=== PATIENT | female | born 1975 | race Caucasian/White ===

== ENCOUNTER 2018-02-06 21:22 | Emergency (ER) | payer BC ==
[2018-02-06] MEDS ORDERED: HYOSCYAMINE SULFATE ODT 0.125 MG TAB.SUBL SL ONE (22:44)
[2018-02-06] MEDS ORDERED: 0.9 % SODIUM CHLORIDE 1000ML 1,000 ML IV SCH (22:45)
--- NOTE | 2018-02-06 22:48 | Emergency Department Record ---
History of Present Illness - General Chief complaint: GI Bleed Stated complaint: BLACK STOOL Time Seen by Provider: 02/06/18 22:37 Source: Patient Mode of Arrival: Ambulatory Limitations: No limitations - History of Present Illness Initial comments: 42 yo female presents to ED for evaluation of abdominal pain/cramping x 1 week and "black stools" that began tonight. Patient reports a history of partial colectomy 3 years ago for colon cancer, did not receive chemo/radiation at that time and has been in remission since that time. Patient reports taking Pepto- bismol as well for the past 2 days. Patient denies fevers, chills, or recent illness. MD complaint: Other (black stools) Onset/Timin -: Days(s) Radiation: None Consistency: Intermittent Improves with: None Worsens with: None Associated Symptoms: Nausea - Related Data Previous Rx's Medication Instructions Recorded Hyoscyamine Sulfate [Levsin-Sl] 0.25 mg SL Q8H PRN #20 tab.subl 02/07/18 Allergies Allergy/AdvReac Type Severity Reaction Status Date / Time meperidine HCl [From Demerol] Allergy NAUSEA Verified 09/16/15 10:46 nitrofurantoin AdvReac NEUROTOXICI Verified 09/16/15 10:46 [From Macrobid] TY nitrofurantoin AdvReac NEUROTOXICI Verified 09/16/15 10:46 macrocrystalline TY [From Macrobid] Travel Screening - Travel/Exposure Within Last 30 Days Have you traveled within the last 30 days?: No - Travel/Exposure Within Last Year Have you traveled outside the [place] in the last year?: No - Additonal Travel Details Have you been exposed to anyone with a communicable illness?: No - Travel Symptoms Symptom Screening: None Review of Systems Constitutional: Denies: Chills, Fever, Malaise, Night sweats Eyes: Denies: Eye discharge, Eye pain ENT: Denies: Congestion, Ear pain, Epistaxis Respiratory: Denies: Cough, Dyspnea Cardiovascular: Denies: Chest pain, Dyspnea on exertion Endocrine: Denies: Fatigue, Heat or cold intolerance Gastrointestinal: Reports: Abdominal pain, Melena. Denies: Nausea, Vomiting Genitourinary: Denies: Incontinence, Retention Musculoskeletal: Denies: Arthralgia, Back pain, Gout, Joint swelling Skin: Denies: Bruising, Change in color Neurological: Denies: Abnormal gait, Confusion, Headache, Seizure Psychiatric: Denies: Anxiety Hematological/Lymphatic: Denies: Anemia, Blood Clots Past Medical History - SOCIAL HISTORY Smoking Status: Never smoker Alcohol Use: None Drug Use: None - RESPIRATORY Hx Respiratory Disorders: No - CARDIOVASCULAR Hx Cardio Disorders: Yes Hx Hypertension: Yes - NEURO Hx Neuro Disorders: No - GI Hx GI Disorders: Yes Hx Abdominal Pain: Yes - Hx Genitourinary Disorders: No - ENDOCRINE Hx Endocrine Disorders: No - MUSCULOSKELETAL Hx Musculoskeletal Disorders: No - PSYCH Hx Psych Problems: No - HEMATOLOGY/ONCOLOGY Hx Hematology/Oncology Disorders: Yes Hx Cancer: Yes (colon) Family Medical History Any Significant Family History?: No Physical Exam - General General Appearance: Alert, Oriented x3, Cooperative, Mild distress Limitations: No limitations - Head Head exam: Atraumatic, Normocephalic, Normal inspection Head exam detail: negative: Abrasion, Contusion, Lock's sign, General tenderness, Hematoma, Laceration - Eye Eye exam: Normal appearance. negative: Conjunctival injection, Periorbital swelling, Periorbital tenderness, Scleral icterus - ENT Ear exam: negative: Auricular hematoma, Auricular trauma Nasal Exam: negative: Active bleeding, Discharge, Dried blood, Foreign body Mouth exam: negative: Drooling, Laceration, Muffled voice, Tongue elevation - Neck Neck exam: Normal inspection. negative: Meningismus, Tenderness - Respiratory Respiratory exam: Normal lung sounds bilaterally. negative: Rales, Respiratory distress, Rhonchi, Stridor - Cardiovascular Cardiovascular Exam: Regular rate, Normal rhythm, Normal heart sounds - GI/Abdominal GI/Abdominal exam: Soft, Tenderness (Mild-moderate diffuse TTP on examination, no rebound or guarding present.). negative: Rebound, Rigid - Rectal Rectal exam: Heme (-) stool, Normal inspection. negative: Black stool, Bloody stool - exam: Deferred - Extremities Extremities exam: Normal inspection. negative: Calf tenderness, Pedal edema, Tenderness - Back Back exam: Denies: CVA tenderness (R), CVA tenderness (L) - Neurological Neurological exam: Alert, Normal gait, Oriented X3 - Psychiatric Psychiatric exam: Normal affect, Normal mood - Skin Skin exam: Normal color. negative: Abrasion Type of lesion: negative: abrasion Course Vital Signs 02/06/18 22:16 Temperature 98.4 F Pulse Rate [ 74 Pulse Ox Probe] Respiratory 18 Rate Blood Pressure 153/90 [Left Arm] Pulse Ox 99 - Reevaluation(s) Reevaluation #1: 02/06/18 23:18 Labs reviewed and are grossly unremarkable for an acute process. Reevaluation #2: 02/07/18 01:58 CT Abdomen and Pelvis: No acute process Patient was updated on all results, reports improvement in her symptoms and appears stable for discharge at this time. Medical Decision Making - Lab Data Result diagrams: 02/06/18 22:45 02/06/18 22:45 Disposition Disposition: Discharge Clinical Impression: Abdominal pain Qualifiers: Abdominal location: generalized Qualified Code(s): R10.84 - Generalized abdominal pain Disposition: Home, Self-Care Condition: (2) Stable Instructions: Abdominal Pain (ED) Additional Instructions: Return to ED if your symptoms worsen or if you have any concerns. Follow-up with your family doctor in 3-5 days as directed. Levsin as directed. Prescriptions: Hyoscyamine Sulfate [Levsin-Sl] 0.25 mg SL Q8H PRN #20 tab.subl PRN Reason: Abdominal Pain Forms: Patient Portal Access Time of Disposition: 00:59 Quality - Quality Measures Quality Measures: N/A - Blood Pressure Screening Does Patient Have Any of the Following: No Blood Pressure Classification: Pre-Hypertensive BP Reading Systolic Measurement: 139 Diastolic Measurement: 80 Screening for High Blood Pressure: < Pre-Hypertensive BP, F/U Documented > [ G8950] Pre-Hypertensive Follow-up Interventions: Referral to alternative/primary care provider.
[2018-02-06 22:54] LABS: BASO % 0.5 % (0-6); EOS % 2.4 % (0-6); GRAN % 57.8 % (47-80); HEMATOCRIT 36.3 % (35.0-47.0); HEMOGLOBIN 12.3 gm/dl (11.6-16.0); LYMPH % 28.4 % (16-45); MEAN CELL VOLUME 82.5 fl (81-97); MEAN CORPUSCULAR HGB CONC 33.9 g/dl (32-36); MEAN PLATELET VOLUME 8.5 fl (7.4-10.4); MONO % 10.9 % (0-9); PLATELET COUNT 269 K/uL (130-400); RED CELL DISTRIBUTION WIDTH 13.4 % (11.5-14.5); WHITE BLOOD COUNT W/O DIFF 5.8 K/uL (4.2-12.2)
[2018-02-06 23:03] LABS: BLOOD UREA NITROGEN 13 mg/dL (6-20); CREATININE 0.6 mg/dL (0.5-0.9); EST GLOMERULAR FILTRATION RATE > 60 mL/min
[2018-02-06 23:04] LABS: TOTAL PROTEIN 6.7 g/dL (6.6-8.7)
[2018-02-06 23:06] LABS: GLUCOSE,RANDOM 118 mg/dL (74-109)
[2018-02-06 23:08] LABS: ALB/GLOB RATIO 1.8 (1.1-1.8); ALBUMIN 4.3 g/dL (4.0-5.0); ALT/SGPT 26 U/L (<33); AST/SGOT 27 U/L (10.0-35.0)
[2018-02-06 23:09] LABS: ALKALINE PHOSPHATASE 62 U/L (35-104); LIPASE 64 U/L (13-60)
[2018-02-06 23:46] LABS: URINE APPEARANCE CLEAR; URINE BILIRUBIN NEGATIVE (NEGATIVE); URINE BLOOD NEGATIVE (NEGATIVE); URINE COLOR YELLOW; URINE GLUCOSE (UA) NEGATIVE (NEGATIVE); URINE KETONE NEGATIVE (NEGATIVE); URINE LEUKOCYTE ESTERASE NEGATIVE (NEGATIVE); URINE NITRITE NEGATIVE (NEGATIVE); URINE PROTEIN NEGATIVE (NEGATIVE); URINE UROBILINOGEN 0.2 E.U./dL (0.20 - 1.00)
[2018-02-06 23:48] LABS: HCG,QUALITATIVE URINE NEGATIVE (NEGATIVE)
--- NOTE | 2018-02-07 19:08 | CT SCAN REPORT ---
EXAM: CT SCAN ABDOMEN/PELVIS W CONTRAST HISTORY: LOWER ABDOMINAL PAIN. TECHNIQUE: Sequential axial images were obtained from the diaphragms through the ischiorectal fossa after the intravenous and oral administration of 100 mL of Omnipaque-300 contrast material. FINDINGS: The visualized lung bases appear normal. The liver appears normal. The gallbladder has been surgically removed. The pancreas appears normal. There is splenomegaly. The spleen measures 13.8 cm AP diameter. The adrenal glands appear normal. There is focal areas of cortical scarring in both kidneys. There is a ventral wall hernia containing transverse colon. No evidence of obstruction. The small bowel appears normal. No pelvic mass or obstruction is appreciated. The uterus and adnexal structures appear normal. The urinary bladder appears normal. There is a sclerotic focus in the right sacroiliac wing. No additional foci are appreciated. IMPRESSION: 1. VENTRAL WALL HERNIA CONTAINING TRANSVERSE COLON. NO EVIDENCE OF OBSTRUCTION. 2. FOCAL AREAS OF SCARRING IN BOTH KIDNEYS. 3. SCLEROTIC FOCUS IN THE RIGHT ILIAC WING MEASURING APPROXIMATELY 16 MM. 4. MILD SPLENOMEGALY. THE SPLEEN MEASURES 13.6 CM AP DIMENSION. JOB NUMBER: [id number] [facility]
== END 2018-02-07 02:24 | disposition home or self-care (01) ==
LOC: ER 21:22
DX: R10.84 Generalized abdominal pain (principal); R11.0 Nausea; I10 Essential (primary) hypertension; Z85.038 Personal history of other malignant neoplasm of large intestine
CPT/HCPCS: 99284 ×2; 83690; 85025; 80053; 81003; 81025; 74177; Q9967; J1980; J7030

== ENCOUNTER 2019-03-19 17:23 | Emergency (ER) | payer BC ==
[2019-03-19 18:04] LABS: BASO % 0.2 % (0-6); EOS % 3.4 % (0-6); GRAN % 61.9 % (47-80); HEMATOCRIT 36.4 % (35.0-47.0); HEMOGLOBIN 12.1 gm/dl (11.6-16.0); LYMPH % 24.8 % (16-45); MEAN CELL VOLUME 82.5 fl (81-97); MEAN CORPUSCULAR HEMOGLOBIN 27.4 pg (27-33); MEAN CORPUSCULAR HGB CONC 33.2 g/dl (32-36); MEAN PLATELET VOLUME 8.8 fl (7.4-10.4); MONO % 9.7 % (0-9); PLATELET COUNT 258 K/uL (130-400); RED BLOOD COUNT 4.41 M/uL (3.80-5.40); RED CELL DISTRIBUTION WIDTH 13.9 % (11.5-14.5); WHITE BLOOD COUNT W/O DIFF 5.2 K/uL (4.2-12.2)
[2019-03-19 18:05] LABS: URINE APPEARANCE CLEAR; URINE BILIRUBIN NEGATIVE (NEGATIVE); URINE BLOOD NEGATIVE (NEGATIVE); URINE COLOR YELLOW; URINE GLUCOSE (UA) NEGATIVE (NEGATIVE); URINE KETONE NEGATIVE (NEGATIVE); URINE LEUKOCYTE ESTERASE NEGATIVE (NEGATIVE); URINE NITRITE NEGATIVE (NEGATIVE); URINE PROTEIN NEGATIVE (NEGATIVE); URINE UROBILINOGEN 0.2 E.U./dL (0.20 - 1.00)
[2019-03-19] MEDS ORDERED: KETOROLAC 30 MG/ML VIAL IVP ONE (18:07)
--- NOTE | 2019-03-19 18:12 | Emergency Department Record ---
History of Present Illness - General Chief complaint: Female Urogenital Problem Stated complaint: PELVIC PAIN Time Seen by Provider: 03/19/19 17:47 Source: Patient Mode of Arrival: Ambulatory Limitations: No limitations - History of Present Illness Initial comments: 43 yo female presents to ED for evaluation of right lower quadrant/inguinal pain that has been progressively worsening for the past several weeks. Patient reports pain with sitting up, standing. Patient denies fevers, chills, urinary symptoms, vaginal discharge, or change in stools. Patient denies previous abdominal surgery, denies health problems at her baseline. MD Complaint: Other Onset/Timin -: Week(s) Location: Other (Right inguinal region) Radiation: Non-radiating Severity: Moderate Quality: Aching Improves with: None Worsens with: None Patient : No LMP Date: 03/12/19 Gestational Age (wks) based on LMP: 1 Associated Symptoms: Denies other symptoms - Related Data Home Medications Medication Instructions Recorded Confirmed Last Taken No Home Med [NO HOME MEDS] 03/19/19 03/19/19 Unknown Allergies Allergy/AdvReac Type Severity Reaction Status Date / Time meperidine HCl [From Demerol] AdvReac NAUSEA Verified 03/19/19 17:44 nitrofurantoin AdvReac NEUROTOXICI Verified 03/19/19 17:44 [From Macrobid] TY nitrofurantoin AdvReac NEUROTOXICI Verified 03/19/19 17:44 macrocrystalline TY [From Macrobid] Travel Screening - Travel/Exposure Within Last 30 Days Have you traveled within the last 30 days?: No Review of Systems Constitutional: Denies: Chills, Fever Eyes: Denies: Eye discharge, Eye pain ENT: Denies: Congestion, Ear pain, Epistaxis Respiratory: Denies: Cough, Dyspnea Cardiovascular: Denies: Chest pain, Dyspnea on exertion Endocrine: Denies: Fatigue, Heat or cold intolerance Gastrointestinal: Reports: Abdominal pain. Denies: Constipation, Nausea, Vomiting Genitourinary: Denies: Incontinence, Retention Musculoskeletal: Denies: Arthralgia, Back pain Skin: Denies: Bruising, Change in color Neurological: Denies: Abnormal gait, Confusion, Headache, Numbness, Vertigo Psychiatric: Denies: Anxiety Hematological/Lymphatic: Denies: Anemia, Blood Clots Past Medical History - SOCIAL HISTORY Smoking Status: Never smoker Alcohol Use: None Drug Use: None - RESPIRATORY Hx Respiratory Disorders: No - CARDIOVASCULAR Hx Cardio Disorders: Yes Hx Hypertension: Yes - NEURO Hx Neuro Disorders: No - GI Hx GI Disorders: Yes Hx Abdominal Pain: Yes - Hx Genitourinary Disorders: No - ENDOCRINE Hx Endocrine Disorders: No - MUSCULOSKELETAL Hx Musculoskeletal Disorders: No - PSYCH Hx Psych Problems: No - HEMATOLOGY/ONCOLOGY Hx Hematology/Oncology Disorders: Yes Hx Cancer: Yes (colon) Family Medical History Any Significant Family History?: No Physical Exam - General General Appearance: Alert, Oriented x3, Cooperative, Moderate distress Limitations: No limitations - Head Head exam: Atraumatic, Normocephalic, Normal inspection Head exam detail: negative: Abrasion, Contusion, Lcok's sign, General tenderness, Hematoma, Laceration - Eye Eye exam: Normal appearance. negative: Conjunctival injection, Periorbital swelling, Periorbital tenderness, Scleral icterus - ENT Ear exam: negative: Auricular hematoma, Auricular trauma Nasal Exam: negative: Active bleeding, Discharge, Dried blood, Foreign body Mouth exam: negative: Drooling, Laceration, Muffled voice, Tongue elevation - Neck Neck exam: Normal inspection. negative: Meningismus, Tenderness - Respiratory Respiratory exam: Normal lung sounds bilaterally. negative: Respiratory distress, Rhonchi, Stridor, Wheezes - Cardiovascular Cardiovascular Exam: Regular rate, Normal rhythm, Normal heart sounds - GI/Abdominal GI/Abdominal exam: Soft, Tenderness (TTP right inguinal region, RLQ, no rebound , guarding. peritoneal signs.). negative: Distended, Rebound, Rigid - Rectal Rectal exam: Deferred - exam: Deferred - Extremities Extremities exam: Normal inspection. negative: Pedal edema, Tenderness - Back Back exam: Denies: CVA tenderness (R), CVA tenderness (L) - Neurological Neurological exam: Alert, Normal gait, Oriented X3 - Psychiatric Psychiatric exam: Normal affect, Normal mood - Skin Skin exam: Normal color. negative: Abrasion Type of lesion: negative: abrasion Course Vital Signs 03/19/19 17:38 Temperature 98.0 F Pulse Rate 91 H Respiratory 18 Rate Blood Pressure 141/74 Pulse Ox 97 - Reevaluation(s) Reevaluation #1: 03/19/19 18:31 Laboratory studies were reviewed and are grossly unremarkable for an acute process. Patient is going for CT imaging at this time. Reevaluation #2: 03/19/19 19:57 CT Abdomen/Pelvis: Interval repair of an anterior wall hernia Likely post-operative seroma No acute intra-abdominal process Chronic scarring of the kidney bilaterally Patient and her SO were updated on all results, following discussion re: admission for observation/pain control and seeing Dr. Prater in the morning, patient would prefer to go home and return in the morning to see Dr. Prater in the [facility] clinic in the morning. Medical Decision Making - Lab Data Result diagrams: 03/19/19 17:55 03/19/19 17:55 Lab Results 03/19/19 03/19/19 Range/Units 17:50 17:55 WBC 5.2 (4.2-12.2) K/uL RBC 4.41 (3.80-5.40) M/uL Hgb 12.1 (11.6-16.0) gm/dl Hct 36.4 (35.0-47.0) % MCV 82.5 (81-97) fl MCH 27.4 (27-33) pg MCHC 33.2 (32-36) g/dl RDW 13.9 (11.5-14.5) % Plt Count 258 (130-400) K/uL MPV 8.8 (7.4-10.4) fl Gran % 61.9 (47-80) % Lymphocytes % 24.8 (16-45) % Monocytes % 9.7 H (0-9) % Eosinophils % 3.4 (0-6) % Basophils % 0.2 (0-6) % Urine Color Yellow Urine Appearance Clear Urine pH 6.0 (5.0-8.0) Ur Specific [place] 1.020 (1.002-1.030) Urine Protein Negative (NEGATIVE) Urine Glucose (UA) Negative (NEGATIVE) Urine Ketones Negative (NEGATIVE) Urine Blood Negative (NEGATIVE) Urine Nitrite Negative (NEGATIVE) Urine Bilirubin Negative (NEGATIVE) Urine Urobilinogen 0.2 (0.20 - 1.00) E.U./dL Ur Leukocyte Esterase Negative (NEGATIVE) Disposition Disposition: Discharge Clinical Impression: Right inguinal pain Disposition: Home, Self-Care Condition: (2) Stable Instructions: Groin Pain (ED) Additional Instructions: Return to ED if your symptoms worsen or if you have any concerns. [place] as directed. Follow-up with Dr. Prater her in the [facility] Specialty clinic in the morning. Referrals: Jairon Prater [DOCTOR OF OSTEOPATH] - [facility] Specialty Clinics [Provider Group] Forms: Patient Portal Access Time of Disposition: 20:12 Quality - Quality Measures Quality Measures: N/A - Blood Pressure Screening Does Patient Have Any of the Following: No Blood Pressure Classification: Hypertensive Reading Systolic Measurement: 141 Diastolic Measurement: 74 Screening for High Blood Pressure: < First Hypertensive BP, F/U Documented > [ G8950] First Hypertensive Follow-up Interventions: Referral to alternative/primary care provider.
[2019-03-19 18:13] LABS: BLOOD UREA NITROGEN 15 mg/dL (6-20); CREATININE 0.7 mg/dL (0.5-0.9); EST GLOMERULAR FILTRATION RATE > 60 mL/min
[2019-03-19 18:14] LABS: LIPASE 43 U/L (13-60)
[2019-03-19] MEDS ORDERED: 0.9 % SODIUM CHLORIDE 1000ML 1,000 ML IV SCH (18:15)
[2019-03-19 18:16] LABS: GLUCOSE,RANDOM 126 mg/dL (74-109)
[2019-03-19 18:19] LABS: ALB/GLOB RATIO 1.7 (1.1-1.8); ALBUMIN 4.4 g/dL (4.0-5.0); ALKALINE PHOSPHATASE 63 U/L (35-104); ALT/SGPT 18 U/L (<33); AST/SGOT 24 U/L (10.0-35.0)
[2019-03-19 19:07] LABS: HCG,QUALITATIVE URINE NEGATIVE (NEGATIVE)
[2019-03-19] MEDS ORDERED: HYDROCODONE/APAP 7.5/325MG TABLET PO ONE (20:13)
--- NOTE | 2019-03-21 08:27 | CT SCAN REPORT ---
EXAM: CT SCAN OF THE ABDOMEN AND PELVIS HISTORY: PATIENT HAS RIGHT LOWER QUADRANT AND RIGHT GROIN PAIN WHICH BEGAN ABOUT TWO WEEKS AGO. TECHNIQUE: Serial axial CT scan of the abdomen and pelvis was performed at 2.5 mm intervals from the dome of the diaphragm down to the pubic symphysis following the intravenous and oral administration of contrast. The amount and type of contrast is recorded in the patient's history. Comparison: CT scan of the abdomen and pelvis dated 02/07/18 is provided. FINDINGS: The lung windows of the lung bases demonstrate no CT evidence of a focal infiltrate or pleural effusion. The visualized heart size and contour is within normal limits. The liver, pancreas, and adrenal glands are unremarkable. Cholecystectomy clips are noted within the right upper quadrant of the abdomen. The spleen measures 13.3 cm in craniocaudad dimension (normal being less than or equal to 12 cm). There is no CT evidence of hydronephrosis or hydroureter. 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 There is a nonobstructive 2 mm calculus within the superior pole of the right kidney. Contour deformities of both kidneys are identified which appears similar to the prior examination. These findings may be related to prior infections and/or infarct. The contour, caliber, and flow within the abdominal aorta is within normal limits. There is no CT evidence of retroperitoneal, pelvic, or inguinal lymphadenopathy. The bowel gas pattern is nonspecific, nonobstructive. There is postoperative change identified within the region of the splenic flexure. The appendix is clearly visualized and there is no CT evidence of appendicitis. In the interval the large umbilical hernia has been surgically repaired. There is a 6.3 cm x 1.8 cm fluid collection within the anterior abdominal wall in the region of the postoperative changes which likely represents a seroma. The urinary bladder is unremarkable. The uterus is unremarkable. Several follicles are identified within both ovaries. Bone windows demonstrate no CT evidence of a fracture or dislocation of the visualized osseous structures of the abdomen and pelvis. The sclerotic focus within the iliac bone noted on the prior CT scan is unchanged. This finding may represent a bone island. IMPRESSION: 1, INTERVAL REPAIR OF THE ABDOMINAL WALL HERNIA IS NOTED DESCRIBED ABOVE. SMALL FLUID WITHIN THE ANTERIOR ABDOMINAL WALL SUBCUTANEOUS FAT LIKELY REPRESENTS A SEROMA. CLINICAL CORRELATION IS RECOMMENDED. 2. CONTOUR DEFORMITIES OF THE BILATERAL KIDNEYS MAY BE THE RESULT OF SCARRING FROM CHRONIC INFECTIONS AND/OR INFARCTS. THIS FINDING APPEARS SIMILAR TO THE PRIOR EXAMINATION. 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 NONOBSTRUCTIVE RIGHT SIDED PUNCTATE RENAL CALCULUS IS NOTED. 3. MILD SPLENOMEGALY IS STABLE. JOB NUMBER: [id number] [facility]
== END 2019-03-19 20:24 | disposition home or self-care (01) ==
LOC: ER 17:23
DX: K40.90 Unilateral inguinal hernia, without obstruction or gangrene, not specified as recurrent (principal); I10 Essential (primary) hypertension
CPT/HCPCS: 99284 ×2; 96374; 83690; 85025; 80053; 81003; 81025; 74177; Q9967; J1885; J7030